=== PATIENT | female | born 1990 | race African-American/Black ===

== ENCOUNTER 2017-06-28 21:22 | Emergency (ER) | payer OTHER ==
--- NOTE | 2017-06-29 00:41 | ED ---
Lillian Gonzalez Alfonso, scribed for China Garcia MD on 06/29/17 at 0007 . HPI Chest Pain - HPI Summary HPI Summary: This patient is a 26 year old F presenting to [facility] accompanied by a friend with a chief complaint of CP since 1529 today. The CP is gradually decreasing. The patient rates the pain 0/10 in severity. Symptoms aggravated by pushing my shoulder back. Symptoms not aggravated by deep breaths. Symptoms alleviated by spontaneous resolution. Patient reports a mild cough. Patient denies SOB and calf pain. She is a [employer] student. She reports occasional ETOH and marijuana use. She denies BCP use. She reports a 6 hour [address] ride 4 weeks ago. She denies any PMHx. - History of Current Complaint Chief Complaint: EDChestPainROMI Time Seen by Provider: 06/28/17 23:55 Hx Obtained From: Patient Onset/Duration: Started Hours Ago - 1529 today Timing: Constant Current Severity: None Pain Intensity: 0 Pain Scale Used: 0-10 Numeric Aggravating Factor(s): Other: - pushing my shoulder back Alleviating Factor(s): Spontaneous Resolution Associated Signs and Symptoms: Positive: Other: - mild cough. Patient denies SOB and calf pain PMH/Surg Hx/FS Hx/Imm Hx Opthamlomology History: Denies: Hx Legally Blind EENT History: Denies: Hx Deafness Infectious Disease History: No Infectious Disease History: Denies: Traveled Outside the [place] in Last 30 Days - Family History Known Family History: Positive: Hypertension, Other - Negative blood clot Negative: Cardiac Disease - Social History Occupation: Student Alcohol Use: Occasionally Hx Substance Use: Yes Substance Use Type: Reports: Marijuana Hx Tobacco Use: No Review of Systems Positive: Chest Pain Positive: Cough. Negative: Shortness Of Breath Positive: Other - Negative calf pain All Other Systems Reviewed And Are Negative: Yes Physical Exam - Summary Physical Exam Summary: General: Well appearing, no pain distress Skin: Warm, Skin Color Reflects Adequate Perfusion, Dry Eyes: EOMI, TYREE ENT: Pharynx normal, TMs normal Neck: Supple, nontender Respiratory: CTA, breath sounds present, no rhonchi, no wheezes, no rales Cardiovascular: RRR, no murmur, no rub, no gallop Abdomen: Soft, nontender, Non-distended, no guarding, no rebound Bowel: Present Musculoskeletal: YURIDIA, No edema Neuro: Sensory/motor intact, A&Ox3, CN intact 2-12 Psych: Affect/mood appropriate Triage Information Reviewed: Yes Vital Signs On Initial Exam: Initial Vitals Temp Pulse Resp BP Pulse Ox 98.8 F 93 18 110/74 97 06/28/17 21:28 06/28/17 21:28 06/28/17 21:28 06/28/17 21:28 06/28/17 21:28 Vital Signs Reviewed: Yes Diagnostics - Vital Signs Vital Signs Temp Pulse Resp BP Pulse Ox 06/28/17 21:28 98.8 F 93 18 110/74 97 - Laboratory Lab Statement: Any lab studies that have been ordered have been reviewed, and results considered in the medical decision making process. - Radiology CXR Radiology Interpretation Completed By: ED Physician - Negative - EKG 2135 Cardiac Rate: NL - BPM 82 EKG Rhythm: Sinus Rhythm EKG Interpretation: NAD Chest Pain Course/Dx - Course Course Of Treatment: 26 yo who stretched her shoulders back during class with the onset of mid chest pain, pain has since subsided significantly and is only there with the stretching. incident occurred at 3pm on mon, of note no early cad hx, no drugs, she did do a bus ride of 6 hours on weekend but did not have leg cramping no other PE risk factors and she has normal vs ,discussed pe risks with pts and both decided that this was a very unlikely cause of this pain that has since the incident almost completely resolved - Diagnoses Provider Diagnoses: Chest wall pain Discharge - Discharge Plan Condition: Stable Disposition: HOME Patient Education Materials: Chest Pain (ED) Forms: *School Release Referrals: [facility] - [facility] [Primary Care Provider] - 3 Days Additional Instructions: RETURN TO THE EMERGENCY DEPARTMENT FOR CHANGING OR WORSENING SYMPTOMS. The documentation as recorded by the Lillian goodson Alfonso accurately reflects the service I personally performed and the decisions made by me, China Garcia MD.
[2017-06-29 01:15] VITALS: BP 108/72
--- NOTE | 2017-06-29 07:54 | RAD ---
INDICATION: Chest pain and cough COMPARISON: None TECHNIQUE: PA and lateral views of the chest were obtained. FINDINGS: The heart and mediastinum are normal in size and contour. The lungs are grossly clear. There is no evidence of large pleural effusion. Visualized bones are normal for the patient's age. There is no radiographic evidence of free air beneath the diaphragm IMPRESSION: No radiographic evidence of acute cardiopulmonary disease.
== END 2017-06-29 01:02 | disposition home or self-care (01) ==
LOC: ED 21:22
DX: R07.89 Other chest pain (principal); R05 Cough
CPT/HCPCS: 71020; 93005; 99282